=== PATIENT | male | born 1960 | race Caucasian/White ===

== ENCOUNTER → 2016-11-21 | Outpatient (CLI) | payer BC ==
[~2016-11-21] MED LIST: CPR500 PO; FLM4 PO; GEMF600T3 PO; OXYC-57 PO; SYN150 PO
[2016-11-21 17:05] LABS: % FREE PSA 18.7 %; FREE PSA 1.39 ng/ml; PROSTATE SPECIFIC ANTIGEN 7.45 ng/ml (0.000-4.000)
== END | disposition home or self-care (01) ==
LOC: C.LAB 16:07
PROVIDERS: ATTEND Urology
DX: N41.1 Chronic prostatitis (principal)

== ENCOUNTER 2021-01-27 11:55 | Observation (INO) ==
[2021-01-27] MEDS ORDERED: SODIUM CHLORIDE 0.9% 1000ML 1,000 ML IV ONE (12:14)
--- NOTE | 2021-01-27 12:15 | Emergency Department Note ---
Impression & Plan Syncope, Chest pain, High serum chloride, Near syncope ED Provider Note NAME: ELIZABETH POE JR AGE: 60 SEX: M : 1960 ARRIVES VIA: Walk-In INFORMANT: Patient ED PROVIDER(S): Ramirez Wetzel DO CHIEF COMPLAINT: chest pain HPI: Patient is a 60-year-old male who presents the ER for chest pain associate with syncope. He was making dinner last night and got midsternal chest pain radiating to his back. He had some neck pain associated with this. He sat down and became nearly unresponsive. He was still able to tell what was going on around him. This lasted for about 5 minutes and he was finally able to get up. He was shaking in the hands. He had no belly pain or nausea. Denies any dysuria urgency or frequency. Chest pain lasted for about 2 hours and has now abated. No other exacerbating or remitting factors. Patient denies diabetes, hypertension, hyperlipidemia, CAD, history of sudden at a young age, and smoking. Patient denies swelling of calves, recent trips, history of immobilization or recent surgery, prior history of DVT, hemoptysis, and history of malignancy. He was a previous smoker several decades ago. He also admits reena t over the past month he has been having worsening shortness of breath with any exertion. ROS: See above HPI for pertinent positives & negatives. A total of 10 systems reviewed and were otherwise negative. PAST MEDICAL HISTORY:See Below PAST SURGICAL HISTORY:See Below FAMILY HISTORY:See Below SOCIAL HISTORY:See Below HOME MEDICATIONS:See Below ALLERGIES:See Below VITALS:See Below PHYSICAL EXAMINATION: GENERAL: Sitting up in bed, alert, well appearing, well nourished, no distress, non-toxic EYE EXAM: normal conjunctiva. PERRL and EOM's intact. OROPHARYNX: no exudate, no erythema, lips, buccal mucosa, and tongue normal and mucous membranes are moist NECK: supple, no nuchal rigidity, no adenopathy, non-tender LUNGS: Clear to auscultation. Normal chest wall mechanics HEART: no murmurs, S1 normal and S2 normal ABDOMEN: abdomen soft, non-tender, normo-active bowel sounds, no masses, no rebound or guarding. BACK: Back is symmetrical on inspection and there is no deformity, no midline tenderness, no CVA tenderness. SKIN: no rashes and no bruising UPPER EXTREMITIES: upper extremities are grossly normal. LOWER EXTREMITIES: No pitting edema. NEURO EXAM: Normal sensorium, cranial nerves II-XII intact, normal speech, no weakness of arms, no weakness of legs. No drift. Finger to nose intact. Gross sensation intact. MEDICAL DECISION MAKING: Patient is a 60-year-old male who presents the ER for worsening shortness of breath over the past month associated with chest pain while cooking dinner yesterday. He had a near syncopal episode. IV was established blood work was obtained.Labs showed no significant leukocytosis or anemia. D-dimer was negative. BMP was remarkable for slightly elevated chloride. Bilirubin LFTs and troponin was negative. Lipase was unremarkable. Covid was negative. He had chest pain radiating through to his back and dissection study was unremarkable.Patient was given aspirin. He was updated bedside. Discussed with the hospitalist due to the chest pain yesterday with a near syncopal episode concern for possible apparent rhythm. Considered ACS as well although would have expected a positive troponin at this point. Triage Nursing notes reviewed. Limited review of prior medical records performed Vital Signs: reviewed and remarkable for HTN Differential diagnosis: Differential diagnoses includes but is not limited to acute coronary syndrome, myocardial infarction, pericarditis, pulmonary embolus, aortic dissection, pneumonia, pneumothorax, musculoskeletal, shingles, esophageal. ER treatment provided: See below Diagnostics interpreted by me: ECG: Sinus rhythm rate of 64 Normal axis Poor baseline in the lateral leads QTC 389 No PVCs Cardiac Monitoring: An order was placed for continuous cardiac monitoring. The monitor shows a rate of 62 with sinus rhythm. Laboratory studies: As stated above and show below. Imaging studies: CT Irma of the chest shows no dissection. No PE. Consultation(s): Discussed with hospitalist for further evaluation Procedures: none Critical Care: None Past Med/Surg History Medical History Benign prostatic hyperplasia with lower urinary tract symptoms Benign prostatic hyperplasia with urinary obstruction Chronic prostatitis Elevated prostate specific antigen (PSA) Gout Hypothyroidism Incomplete bladder emptying Nephrolithiasis Surgical History History of cholecystectomy History of hernia repair History of tonsillectomy and adenoidectomy Family History Father Heart disease Heart rhythm problem Social History Smoking Status: Former smoker Hx Alcohol Use: No Hx Substance Use: No Preferred Language: Yi marital status: Single Current Living Situation: Alone current occupational status: employed Feels Safe at Home: Yes Allergies Allergies Allergy/AdvReac Type Severity Reaction Status Date / Time No Known Allergies Allergy Verified 01/27/21 14:26 Home Meds Home Medications Medication Instructions Recorded Confirmed tamsulosin 0.4 mg capsule 0.4 mg PO DAILY 06/19/19 01/27/21 allopurinol 100 mg PO DAILY 01/27/21 01/27/21 colchicine 0.6 mg PO DAILY 01/27/21 01/27/21 levothyroxine 150 mcg PO DAILYBB 01/27/21 01/27/21 tadalafil 5 mg PO DAILY PRN 01/27/21 01/27/21 Results & Data (ED) Vital Signs Vital Signs - 24 hr 01/27/21 11:56 01/27/21 12:22 01/27/21 13:48 Temperature 36.1 C L Temperature Source Temporal Artery Scan Pulse Rate 69 65 Pulse Rate [Apical] 64 62 Pulse Rate from SpO2 Sensor Respiratory Rate 18 20 18 Respiratory Effort / Characteristics Non-Labored Spontaneous Non-Labored Spontaneous Respiratory Depth Normal Normal Respiratory Pattern Regular Blood Pressure 172/87 H Blood Pressure [Left Arm] 145/74 H 135/56 L Blood Pressure Mean 115 Blood Pressure Mean [Left Arm] 97 82 Blood Pressure Position Sitting Pulse Oximetry 98 95 96 Oxygen Delivery Method Room Air Room Air Room Air Sepsis Recent Fever Within 48 Hours No Sepsis New/Unexplained Change in Mental Status No Sepsis Action Taken by Nursing No Action Required 01/27/21 15:00 01/27/21 15:30 01/27/21 16:00 Temperature Temperature Source Pulse Rate 58 L 60 61 Pulse Rate [Apical] Pulse Rate from SpO2 Sensor 59 L 59 L 60 Respiratory Rate 20 20 16 Respiratory Effort / Characteristics Respiratory Depth Respiratory Pattern Blood Pressure 152/76 H 143/77 H 172/70 H Blood Pressure [Left Arm] Blood Pressure Mean 101 99 104 Blood Pressure Mean [Left Arm] Blood Pressure Position Pulse Oximetry 97 95 97 Oxygen Delivery Method Sepsis Recent Fever Within 48 Hours Sepsis New/Unexplained Change in Mental Status Sepsis Action Taken by Nursing Laboratory Data Result diagrams: 01/27/21 12:18 01/27/21 12:18 Lab Results 01/27/21 01/27/21 01/27/21 Range/Units 12:18 12:18 12:18 WBC 9.55 (4.8-10.8) K/uL RBC 5.12 (4.7-6.1) M/uL Hgb 15.1 (14.0-18.0) g/dL Hct 43.6 (42-52) % MCV 85.2 (80-100) fL MCH 29.5 (25-34) pg MCHC 34.6 (32-36) g/dL RDW Std Deviation 41.3 (36.4-46.3) fL RDW Coeff of Zoltan 13.3 (11.5-14.5) % Plt Count 238 (130-400) K/uL MPV 9.8 (7.4-10.4) fL Immature Gran % (Auto) 0.4 % Neut % (Auto) 48.0 % Lymph % (Auto) 37.9 % Upson % (Auto) 9.3 % Eos % (Auto) 4.1 % Baso % (Auto) 0.3 % Neut # (Auto) 4.58 (1.4-6.5) K/uL Lymph # (Auto) 3.62 H (1.2-3.4) K/uL Upson # (Auto) 0.89 H (0.11-0.59) K/uL Eos # (Auto) 0.39 (0-0.5) K/uL Baso # (Auto) 0.03 (0-0.2) K/uL Immature Gran # (Auto) 0.04 H (0.00-0.02) K/uL D-Dimer 400 (0-500) ug/L FEU Sodium 143 (136-145) mmol/L Potassium 4.2 (3.5-5.1) mmol/L Chloride 111 H (98-107) mmol/L Carbon Dioxide 28 (21-32) mmol/L Anion Gap 4.0 (3-11) BUN 16 (7-18) mg/dl Creatinine 1.07 (0.6-1.4) mg/dl Est Cr Clr Drug Dosing 88.9 ml/min Est GFR ( Amer) 85.8 Est GFR (Non-Af Amer) 74.0 BUN/Creatinine Ratio 14.5 (10-20) Glucose 89 (70-99) mg/dl Calcium 9.5 (8.5-10.1) mg/dl Total Bilirubin 0.5 (0.2-1) mg/dl AST 16 (15-37) U/L ALT 29 (12-78) U/L Alkaline Phosphatase 104 (45-117) U/L Troponin I < 0.015 (0-0.045) ng/ml Total Protein 7.4 (6.4-8.2) gm/dl Albumin 3.6 (3.4-5.0) gm/dl Globulin 3.8 (2.5-4.0) gm/dl Albumin/Globulin Ratio 0.9 (0.9-2) Lipase 180 (73-393) U/L COVID-19 Eval Order SARS-CoV-2, RNA, NAAT (NEGATIVE) 01/27/21 01/27/21 Range/Units 14:16 14:16 WBC (4.8-10.8) K/uL RBC (4.7-6.1) M/uL Hgb (14.0-18.0) g/dL Hct (42-52) % MCV (80-100) fL MCH (25-34) pg MCHC (32-36) g/dL RDW Std Deviation (36.4-46.3) fL RDW Coeff of Zoltan (11.5-14.5) % Plt Count (130-400) K/uL MPV (7.4-10.4) fL Immature Gran % (Auto) % Neut % (Auto) % Lymph % (Auto) % Upson % (Auto) % Eos % (Auto) % Baso % (Auto) % Neut # (Auto) (1.4-6.5) K/uL Lymph # (Auto) (1.2-3.4) K/uL Upson # (Auto) (0.11-0.59) K/uL Eos # (Auto) (0-0.5) K/uL Baso # (Auto) (0-0.2) K/uL Immature Gran # (Auto) (0.00-0.02) K/uL D-Dimer (0-500) ug/L FEU Sodium (136-145) mmol/L Potassium (3.5-5.1) mmol/L Chloride (98-107) mmol/L Carbon Dioxide (21-32) mmol/L Anion Gap (3-11) BUN (7-18) mg/dl Creatinine (0.6-1.4) mg/dl Est Cr Clr Drug Dosing ml/min Est GFR ( Amer) Est GFR (Non-Af Amer) BUN/Creatinine Ratio (10-20) Glucose (70-99) mg/dl Calcium (8.5-10.1) mg/dl Total Bilirubin (0.2-1) mg/dl AST (15-37) U/L ALT (12-78) U/L Alkaline Phosphatase (45-117) U/L Troponin I (0-0.045) ng/ml Total Protein (6.4-8.2) gm/dl Albumin (3.4-5.0) gm/dl Globulin (2.5-4.0) gm/dl Albumin/Globulin Ratio (0.9-2) Lipase (73-393) U/L COVID-19 Eval Order Covid19 [facility] SARS-CoV-2, RNA, NAAT NEGATIVE (NEGATIVE) Administered Medications Discontinued Medications Aspirin (Aspirin Chew 324 Mg) 324 mg PO NOW STA Stop: 01/27/21 14:09 Last Admin: 01/27/21 14:16 Dose: 324 mg Documented by: [id number] Sodium Chloride (Nss 1000ml) 1,000 mls @ 999 mls/hr IV .Q1H1M ONE Stop: 01/27/21 13:14 Last Infusion: 01/27/21 13:30 Dose: 0 mls/hr Documented by: [id number] Admin: 01/27/21 12:24 Dose: 999 mls/hr Documented by: [id number] Ioversol (Optiray 320 125ml) 120 ml IV ONCE ONE Stop: 01/27/21 13:21 Last Admin: 01/27/21 13:21 Dose: 120 ml Documented by: [id number] Discharge Plan Visit Data Chief Complaint: Syncope (Near Syncope) Stated Complaint: CHEST PAIN PASSED OUT ED Provider: Ramirez Wetzel Discharge Problem: Syncope, Chest pain, High serum chloride, Near syncope Forms Stand Alone Forms: [facility] Prescriptions Prescriptions: No Action tamsulosin [Flomax] 0.4 mg capsule 0.4 mg PO DAILY RF: 0 allopurinol 100 mg tablet 100 mg PO DAILY RF: 0 levothyroxine 150 mcg tablet 150 mcg PO DAILYBB RF: 0 colchicine 0.6 mg tablet 0.6 mg PO DAILY RF: 0 tadalafil 5 mg tablet 5 mg PO DAILY PRN (Reason: Erectile Dysfunction) RF: 0 Discharge Problem: Syncope Qualifiers: Syncope type: unspecified Qualified Code(s): R55 - Syncope and collapse Chest pain Qualifiers: Chest pain type: unspecified Qualified Code(s): R07.9 - Chest pain, unspecified
[2021-01-27 12:42] LABS: Basophils # (auto) 0.03 K/uL (0-0.2); Basophils % (auto) 0.3 %; Eosinophils # (auto) 0.39 K/uL (0-0.5); Eosinophils % (auto) 4.1 %; Hematocrit (blood only) 43.6 % (42-52); Hemoglobin 15.1 g/dL (14.0-18.0); Immature Granulocytes # (auto) 0.04 K/uL (0.00-0.02); Immature Granulocytes % (auto) 0.4 %; Lymphocytes # (auto) 3.62 K/uL (1.2-3.4); Lymphocytes % (auto) 37.9 %; Mean Corpuscular Hemoglobin 29.5 pg (25-34); Mean Corpuscular Hgb Conc 34.6 g/dL (32-36); Mean Corpuscular Volume 85.2 fL (80-100); Mean Platelet Volume 9.8 fL (7.4-10.4); Monocytes # (auto) 0.89 K/uL (0.11-0.59); Monocytes % (auto) 9.3 %; Neutrophils # (auto) 4.58 K/uL (1.4-6.5); Platelet Count 238 K/uL (130-400); RDW Coefficient of Variation 13.3 % (11.5-14.5); RDW Standard Deviation 41.3 fL (36.4-46.3); Red Blood Count 5.12 M/uL (4.7-6.1); White Blood Count 9.55 K/uL (4.8-10.8)
--- NOTE | 2021-01-27 12:50 | XRay Report ---
XR chest 1V portable HISTORY: Atypical Chest Pain COMPARISON: Chest CT 10/02/2012. FINDINGS: There are low lung volumes. The cardiac silhouette is mildly enlarged. The lungs are clear. No pleural effusions. No pneumothorax. IMPRESSION: Mild enlargement of the cardiac silhouette. This may be accentuated by the low lung volumes. ACT 112: Negative or not required by law. Electronically signed by: Oneil Meyers M.D. 01/27/2021 12:49 PM
[2021-01-27 12:55] LABS: D Dimer 400 ug/L FEU (0-500)
[2021-01-27 13:02] LABS: Alanine Aminotransferase 29 U/L (12-78); Albumin Level 3.6 gm/dl (3.4-5.0); Aspartate Aminotransferase 16 U/L (15-37); BUN Creatinine Ratio 14.5 (10-20); Blood Urea Nitrogen 16 mg/dl (7-18); Calcium 9.5 mg/dl (8.5-10.1); Carbon Dioxide 28 mmol/L (21-32); Chloride 111 mmol/L (98-107); Creatinine Clr Calc Pharmacy 88.9 ml/min; Est GFR (African American) 85.8; Glucose 89 mg/dl (70-99); Lipase 180 U/L (73-393); Potassium 4.2 mmol/L (3.5-5.1); Sodium 143 mmol/L (136-145)
[2021-01-27 13:07] LABS: Albumin Globulin Ratio 0.9 (0.9-2); Alkaline Phosphatase 104 U/L (45-117); Bilirubin,Total 0.5 mg/dl (0.2-1); Globulin 3.8 gm/dl (2.5-4.0); Total Protein 7.4 gm/dl (6.4-8.2); Troponin I < 0.015 ng/ml (0-0.045)
[2021-01-27] MEDS ORDERED: OPTIRAY 320 125ml IV ONE (13:20)
--- NOTE | 2021-01-27 13:42 | CT Scan Report ---
CT ANGIOGRAPHY OF THE CHEST WITHOUT AND WITH IV CONTRAST CLINICAL HISTORY: Atypical chest pain with syncope. COMPARISON STUDY: Noncontrast chest CT dated 10/10/2012 TECHNIQUE: Unenhanced images were obtained through the thorax. Following the IV administration of 120 mL of Optiray-320, CT angiography of the thorax was performed from the thoracic inlet to the lung ba ses. Images were acquired Images are reviewed in the axial, sagittal, and coronal planes. IV contrast was administered without complication. A dose lowering technique was utilized adhering to the princ iples of [place]TH[place]. CT DOSE: 1796.98 mGy.cm FINDINGS: Thyroid: Imaged portions of the thyroid gland are normal in appearance. Thoracic aorta: Noncontrast images reveal no evidence of acute thoracic hematoma. There is no evidenc e of thoracic aortic aneurysm or dissection. Pulmonary vasculature: The pulmonary trunk is normal in caliber. There are no central filling defects identified to suggest pulmonary embolus. Note that this examination was not protocoled for the evalu ation of pulmonary emboli. HEART: There is no pericardial effusion. There are mild coronary artery calcifications Lungs and pleural spaces: There is moderate respiratory motion artifact. There is no focal pulmonary consolidation. There is no pneumothorax. There are no pleural effusions. There is a stable 5 mm subpl eural right lower lobe pulmonary nodule Mediastinum: There is no mediastinal lymphadenopathy. Christy: Clear. Axilla: Clear. Upper abdomen: There is a 1 cm right renal cyst. There is a punctate nonobstructing right renal calc ulus Skeletal structures: There are no lytic or blastic osseous lesions. IMPRESSION: 1. No evidence of thoracic aortic aneurysm or dissection 2. No evidence of acute pulmonary embolism given the technical limitations study 3. No evidence of focal pulmonary consolidation 4. Motion degraded exam ACT 112: Negative or not required by law. Electronically signed by: Rich Boykin M.D. 01/27/2021 1:41 PM
[2021-01-27] MEDS ORDERED: ASPIRIN CHEW 324 MG PO STA (14:08)
--- NOTE | 2021-01-27 15:07 | History & Physical Report ---
Date of Service January 27, 2021 Assessment & Plan (1) Chest pain: (2) Near syncope: Pt is 60 y/o M with PMH hypothyroidism, BPH, gout presented to ER with c/o episode of chest pain and near syncope last night after making dinner. No recurrent symptoms. No current CP. In ER vitals stable. Negative troponin. EKG: normal sinus rhythm. CTA chest: No evidence of thoracic aortic aneurysm or dissection. No evidence of acute pulmonary embolism given the technical limitations study DDX: ACS, arrhythmia Monitor Vitals Repeat EKG in am Will trend troponin Echo Lipid panel in am If elevating troponin consider cardiology consult Pt may need Zio patch upon discharge (3) Hypothyroidism: Obtain TSH Continue levothyroxine (4) Gout: Continue allopurinol. Pt has not been taking colchicine (5) Benign prostatic hyperplasia with lower urinary tract symptoms: Continue tamsulosin DVT Prophylaxis -Lovenox SQ Full code as per discussion with pt Follows with Dr Dennis for routine care Pt was seen and care coordinated with Dr Méndez. See addendum History of Present Illness Chief Complaint: CP last night Primary Care Provider: Dr Dennis Pt is 60 y/o M with PMH hypothyroidism, BPH, gout presented to ER with c/o episode of chest pain and near syncope last night. 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 While making dinner had aching mid chest pain with radiation to back and posterior neck. Pain lasted a few minutes. He took 2 OTC Aleve. Sat down to eat and reports lightheaded and "was out of it" but was awake and aware of his surroundings. Reports some nausea, no vomiting. Symptoms resolved and denies any recurrent symptoms since. Denies palpitations, vomiting, abdominal pain, LARSON. Pt states sometimes is SOB but feels this is secondary to being overweight. Denies extremity edema. Pt states has had episodes of mid sternal CP in the past that lasted a few minutes and resolved, but is unable to further describe if was during activity and any alleviating or aggravating factors. Denies fever/chills, diaphoresis, vomiting, diarrhea, vision changes, orthopnea, cough, sore throat, choking, otalgia, rhinorrhea, abdominal pain, paresthesias, weakness, extremity weakness, rashes, urinary symptoms. Denies any known cardiac history. FH father with heart rhythm problem. Allergies Allergy/AdvReac Type Severity Reaction Status Date / Time No Known Allergies Allergy Verified 01/27/21 14:26 Home Medications Medication Instructions Recorded Confirmed Type tamsulosin 0.4 mg capsule 0.4 mg PO DAILY 06/19/19 01/27/21 History allopurinol 100 mg PO DAILY 01/27/21 01/27/21 History colchicine 0.6 mg PO DAILY 01/27/21 01/27/21 History levothyroxine 150 mcg PO DAILYBB 01/27/21 01/27/21 History tadalafil 5 mg PO DAILY PRN 01/27/21 01/27/21 History Past Med/Surg History Medical History Benign prostatic hyperplasia with lower urinary tract symptoms Benign prostatic hyperplasia with urinary obstruction Chronic prostatitis Elevated prostate specific antigen (PSA) Gout Hypothyroidism Incomplete bladder emptying Nephrolithiasis Surgical History History of cholecystectomy History of hernia repair History of tonsillectomy and adenoidectomy Family History Father Heart disease Heart rhythm problem Social History Smoking Status: Former smoker Hx Alcohol Use: No Hx Substance Use: No Preferred Language: Bengali marital status: Single Current Living Situation: Alone current occupational status: employed Feels Safe at Home: Yes Review of Systems Review of Systems: All systems reviewed & are unremarkable except as noted in HPI & below Physical Exam Physical Exam: General: no distress, obese Head: normocephalic, atraumatic Eyes: conjunctiva non-injected, anicteric ENT: normal inspection external ears, nose, mucous membranes moist Neck: supple, trachea midline, ROM intact Lungs: clear, no respiratory distress, no wheezing/rhonchi/rales CV: RRR, no murmur, no pretibial edema Abd: normal BS, protuberant, soft, non-tender Ext: no cyanosis, no calf tenderness Neuro: A&O x 3, no focal deficits noted, normal affect Skin: warm, dry Results & Data Results & Data ([facility]) Vital Signs (Past 12 Hours) Vital Signs Temp Pulse Pulse Resp BP BP Pulse Ox 01/27/21 13:48 62 18 135/56 L 96 01/27/21 12:22 65 64 20 145/74 H 95 01/27/21 11:56 36.1 C L 69 18 172/87 H 98 Laboratory Results Short CBC 01/27/21 Range/Units 12:18 WBC 9.55 (4.8-10.8) K/uL Hgb 15.1 (14.0-18.0) g/dL Hct 43.6 (42-52) % Plt Count 238 (130-400) K/uL BMP 01/27/21 12:18 Sodium 143 Potassium 4.2 Chloride 111 H Carbon Dioxide 28 BUN 16 Creatinine 1.07 Glucose 89 Calcium 9.5 Cardiac Enzymes 01/27/21 Range/Units 12:18 Troponin I < 0.015 (0-0.045) ng/ml Liver Function 01/27/21 Range/Units 12:18 Total Bilirubin 0.5 (0.2-1) mg/dl AST 16 (15-37) U/L ALT 29 (12-78) U/L Alkaline Phosphatase 104 (45-117) U/L Albumin 3.6 (3.4-5.0) gm/dl Diagnostic Findings CXR: IMPRESSION: Mild enlargement of the cardiac silhouette. This may be accentuated by the low lung volumes. CTA CHEST: IMPRESSION: 1. No evidence of thoracic aortic aneurysm or dissection 2. No evidence of acute pulmonary embolism given the technical limitations study 3. No evidence of focal pulmonary consolidation 4. Motion degraded exam ECG Rate (beats per minute): 64 Rhythm: normal sinus Code Status & VTE Plan VTE Prophylaxis Plan VTE Prophylaxis will be ordered: Yes Supervising Physician Co-Signing Physician Notes 60-year-old man with history of hypothyroidism, BPH, gout who presented to the ER complaining of an episode of central achy chest pain yesterday evening and near syncopal episode. History and physical exam performed by me. Detailed by Ade Moy PA-C Patient currently denies any symptoms. Physical exam notable for obesity and elevated blood pressure. EKG shows normal sinus rhythm Lab work unremarkable. Troponins negative CT chest unremarkable. Negative for PE. -Chest pain -Near syncopal episode. Continue telemetry monitoring Trend troponins Get TSH We will get echocardiogram in the morning May need Zio patch testing outpatient Other plans as detailed by Zee Moy PA-C in plans above (1) Chest pain Chest pain type: unspecified Qualified Code(s): R07.9 - Chest pain, unspecified
[2021-01-27] MEDS ORDERED: amLODIPine BESYLATE 5 MG TAB PO ONE (16:42)
[2021-01-27] MEDS ORDERED: ACETAMINOPHEN 325 MG TAB PO PRN (17:08)
[2021-01-27] MEDS ORDERED: NITROGLYCERIN SL 0.4 MG/TAB TAB SL PRN (17:08)
[2021-01-27] MEDS ORDERED: ENOXAPARIN INJ 40 MG/0.4 ML SYR SQ SCH (19:00)
--- NOTE | 2021-01-28 05:56 | Electrocardiogram Report ---
Test Reason : Blood Pressure : / mmHG Vent. Rate : 064 BPM Atrial Rate : 064 BPM P-R Int : 146 ms QRS Dur : 090 ms QT Int : 378 ms P-R-T Axes : 045 006 043 degrees QTc Int : 389 ms Normal sinus rhythm Normal ECG When compared with ECG of 04-FEB-2011 08:58, No significant change was found Confirmed by Arley Mckeon ([id number]) on 01/28/2021 5:56:24 AM Referred By: REFERRED SELF Confirmed By:Arley Mckeon
[2021-01-28 06:29] LABS: Hematocrit (blood only) 41.8 % (42-52); Hemoglobin 14.6 g/dL (14.0-18.0); Mean Corpuscular Hemoglobin 29.4 pg (25-34); Mean Corpuscular Hgb Conc 34.9 g/dL (32-36); Mean Corpuscular Volume 84.1 fL (80-100); Mean Platelet Volume 9.6 fL (7.4-10.4); Platelet Count 203 K/uL (130-400); RDW Coefficient of Variation 13.3 % (11.5-14.5); RDW Standard Deviation 40.7 fL (36.4-46.3); Red Blood Count 4.97 M/uL (4.7-6.1)
[2021-01-28] MEDS ORDERED: LEVOTHYROXINE SODIUM 150 MCG TABLET PO SCH (06:30)
[2021-01-28 06:59] LABS: BUN Creatinine Ratio 14.9 (10-20); Calcium 8.8 mg/dl (8.5-10.1); Creatinine Clr Calc Pharmacy 111.1 ml/min; Est GFR (African American) 107.7; Est GFR (Non-African American) 92.9
[2021-01-28] MEDS ORDERED: allopurinoL 100 MG TAB PO SCH (09:00)
[2021-01-28] MEDS ORDERED: TAMSULOSIN HCL 0.4 MG CAP PO SCH (09:00)
[2021-01-28] MEDS ORDERED: amLODIPine BESYLATE 5 MG TAB PO SCH (09:00)
[2021-01-28 13:15] LABS: Estimated Average Glucose 117 mg/dl; Hemoglobin A1C 5.7 % (4.5-5.6)
--- NOTE | 2021-01-28 13:19 | Discharge Summary ---
Date of Service January 28, 2021 Admission HPI Per Admitting Provider Pt is 60 y/o M with PMH hypothyroidism, BPH, gout presented to ER with c/o episode of chest pain and near syncope last night. 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 While making dinner had aching mid chest pain with radiation to back and posterior neck. Pain lasted a few minutes. He took 2 OTC Aleve. Sat down to eat and reports lightheaded and "was out of it" but was awake and aware of his surroundings. Reports some nausea, no vomiting. Symptoms resolved and denies any recurrent symptoms since. Denies palpitations, vomiting, abdominal pain, LARSON. Pt states sometimes is SOB but feels this is secondary to being overweight. Denies extremity edema. Pt states has had episodes of mid sternal CP in the past that lasted a few minutes and resolved, but is unable to further describe if was during activity and any alleviating or aggravating factors. Denies fever/chills, diaphoresis, vomiting, diarrhea, vision changes, orthopnea, cough, sore throat, choking, otalgia, rhinorrhea, abdominal pain, paresthesias, weakness, extremity weakness, rashes, urinary symptoms. Denies any known cardiac history. FH father with heart rhythm problem. Admission Exam Per Admitting Provider General: no distress, obese Head: normocephalic, atraumatic Eyes: conjunctiva non-injected, anicteric ENT: normal inspection external ears, nose, mucous membranes moist Neck: supple, trachea midline, ROM intact Lungs: clear, no respiratory distress, no wheezing/rhonchi/rales CV: RRR, no murmur, no pretibial edema Abd: normal BS, protuberant, soft, non-tender Ext: no cyanosis, no calf tenderness Neuro: A&O x 3, no focal deficits noted, normal affect Skin: warm, dry Principal Diagnosis Atypical chest pain Near syncope Hypertension Discharge Exam Constitutional + well hydrated and + obese; no acute distress Eyes PERRL, conjunctivae normal, anicteric sclerae ENMT external ear and nose normal, oropharynx normal Respiratory normal respiratory effort, lungs clear to auscultation Cardiovascular RRR, no murmur, no edema Chest (Breasts) Additional Comments: No chest wall tenderness Gastrointestinal (Abdomen) normal bowel sounds, soft, nontender, no hepatosplenomegaly Musculoskeletal no cyanosis or clubbing, extremities motor strength 5/5 Neurologic PERRL, EOMI, accommodation nl, no face palsy, no dysarthria Psychiatric A+Ox3, euthymic affect Genitourinary no CVA tenderness Discharge Data Allergies Allergy/AdvReac Type Severity Reaction Status Date / Time No Known Allergies Allergy Verified 01/27/21 14:26 Ordered Studies 01/27/21 12:15 CT angio chest dissec wo/w con Stat Thyroid: Imaged portions of the thyroid gland are normal in appearance. Thoracic aorta: Noncontrast images reveal no evidence of acute thoracic hematoma. There is no evidence of thoracic aortic aneurysm or dissection. Pulmonary vasculature: The pulmonary trunk is normal in caliber. There are no central filling defects identified to suggest pulmonary embolus. Note that this examination was not protocoled for the evaluation of pulmonary emboli. HEART: There is no pericardial effusion. There are mild coronary artery calcifications Lungs and pleural spaces: There is moderate respiratory motion artifact. There is no focal pulmonary consolidation. There is no pneumothorax. There are no pleural effusions. There is a stable 5 mm subpleural right lower lobe pulmonary nodule Mediastinum: There is no mediastinal lymphadenopathy. Christy: Clear. Axilla: Clear. Upper abdomen: There is a 1 cm right renal cyst. There is a punctate nonobstructing right renal calculus Skeletal structures: There are no lytic or blastic osseous lesions. IMPRESSION: 1. No evidence of thoracic aortic aneurysm or dissection 2. No evidence of acute pulmonary embolism given the technical limitations study 3. No evidence of focal pulmonary consolidation 4. Motion degraded exam Hospital Course (1) Chest pain: (2) Hypertension: (3) Near syncope: 60 y/o M with PMH hypothyroidism, BPH, gout presented to ER with c/o episode of chest pain and near syncope last night after making dinner. No recurrent symptoms. No current CP. In ER vitals stable. Negative troponin. EKG: normal sinus rhythm. CTA chest: No evidence of thoracic aortic aneurysm or dissection. No evidence of acute pulmonary embolism given the technical limitations study Troponin trend was negative Telemetry monitoring was unremarkable Echocardiogram showed HEART: Heart sounds are regular, no murmur or gallop or rub is heard. Left ventricle size, normal wall motion, EF of 65 to 70%, no significant valvular disease, no pericardial effusion, moderate concentric left ventricular hypertrophy Patient is to follow-up with PCP for Zio patch testing/Holter monitoring to rule out any dysrhythmias Patient remained persistently hypertensive while inpatient Amlodipine 5 mg daily was started for new diagnosis of hypertension. Patient to follow-up with PCP for continued monitoring and management Hemoglobin A1c was 5.7 Patient counseled on lifestyle modification (4) Hypothyroidism: TSH was 0.463 Continue levothyroxine (5) Gout: Continue allopurinol. Pt has not been taking colchicine (6) Benign prostatic hyperplasia with lower urinary tract symptoms: Continue tamsulosin Total Time Total Time Spent Total Time Spent (In Minutes): 45 Total Time Includes: Examination of the Patient, Discharge Planning and Medication Reconciliation Discharge Plan Discharge Items Patient Disposition: Home - Self-Care Reason For Visit: NEAR SYNCOPE Discharge Diagnosis: Chest pain, atypical Near syncope Hypertension Activity: Resume your previous activity Non-emergency contact: Primary Care Provider Call non-emergency contact if: you have any medication questions and your symptoms worsen Follow-up/Referrals: Salvatore Lin MD [Primary Care Provider] - (Date & Time 02/02/2021 1:40 PM Provider Jose Shah, Department [facility] ) Diet: Heart Healthy Addtl Attending Provider Instructions: Mr Dobbs. You came to the hospital complaining of chest pain and an episode of feeling faint. You were extensively evaluated with blood test, EKG, telemetry and echocardiogram. You were also diagnosed of hypertension while in the hospital. You were started on amlodipine for blood pressure control. You need to follow-up with your primary care doctor. You will need to have Holter monitoring/Zio patch testing to assess for any abnormal heart rhythms prior primary care doctor. Please continue taking your medications as prescribed. It was a pleasure taking care of you Pending Studies at Discharge: No Stand-Alone Forms: My [facility] [employer], Smoking Cessation Medications and DC Order Prescriptions: New amlodipine [Norvasc] 5 mg Tablet 5 mg PO QAM 30 Days Qty: 30 RF: 0 Continued tamsulosin [Flomax] 0.4 mg capsule 0.4 mg PO DAILY RF: 0 allopurinol 100 mg tablet 100 mg PO DAILY RF: 0 levothyroxine 150 mcg tablet 150 mcg PO DAILYBB RF: 0 colchicine 0.6 mg tablet 0.6 mg PO DAILY RF: 0 tadalafil 5 mg tablet 5 mg PO DAILY PRN (Reason: Erectile Dysfunction) RF: 0 Discharge Orders: Discharge Order (Routine); Ordered 01/28/21 Ordered By: Portia Méndez Admission Data Admit Date/Time: 01/27/21 14:16 Attending Provider: Portia Méndez I. Admit Provider: Portia Méndez I. Primary Care Provider: Salvatore Lin Other Interventions: Discharge Summary Assessment (RN) Last Done: 01/28/21 13:25
--- NOTE | 2021-01-29 05:52 | Electrocardiogram Report ---
Test Reason : Blood Pressure : / mmHG Vent. Rate : 057 BPM Atrial Rate : 057 BPM P-R Int : 148 ms QRS Dur : 098 ms QT Int : 436 ms P-R-T Axes : 028 035 034 degrees QTc Int : 424 ms Sinus bradycardia Otherwise normal ECG When compared with ECG of 27-JAN-2021 12:08, No significant change was found Confirmed by Arley Mckeon ([id number]) on 01/29/2021 5:51:32 AM Referred By: REFERRED SELF Confirmed By:Arley Mckeon
== END 2021-01-28 14:24 | disposition home or self-care (01) ==
LOC: ED 11:55 → 2N 11:55